=== PATIENT | female | born 1990 | race Caucasian/White ===

== ENCOUNTER → 2016-11-15 | Outpatient (CLI) | payer OTHER ==
[~2016-11-15] MED LIST: PRENTAB26 PO
== END | disposition home or self-care (01) ==
LOC: C.PAPS 09:31
PROVIDERS: ATTEND Obstetrics & Gynecology
DX: Z12.4 Encounter for screening for malignant neoplasm of cervix (principal)

== ENCOUNTER 2019-04-03 11:26 | Inpatient (IN) ==
[2019-04-03] MEDS ORDERED: LACTATED RINGER'S 1,000 ML IV PRN (12:14)
[2019-04-03] MEDS ORDERED: OXYTOCIN 30 UNITS/500 ML BAG IV PRN ×2 (12:14→13:58)
[2019-04-03 12:33] LABS: Hematocrit (blood only) 38.8 % (37-47); Hemoglobin 13.3 g/dL (12.0-16.0); Mean Corpuscular Volume 85.5 fL (80-100); Platelet Count 167 K/uL (130-400); RDW Coefficient of Variation 14.8 % (11.5-14.5); RDW Standard Deviation 45.6 fL (36.4-46.3); Red Blood Count 4.54 M/uL (4.2-5.4); White Blood Count 9.64 K/uL (4.8-10.8)
[2019-04-03 12:39] LABS: Mean Corpuscular Hgb Conc 34.3 g/dL (32-36)
--- NOTE | 2019-04-03 13:41 | Procedure Note ---
Vaginal Delivery Summary Date of Service April 03, 2019 Supervising Physician Co-Signing Physician Notes Lorrie pushed to deliver a viable male infant in OA position. There was no nuchal cord. The left / anterior shoulder delivered easily followed by the right one, and the remainder of the infant quickly followed. The vigorous was placed on the maternal abdomen where bulb suction and tactile stim were provided. The cord was doubly clamped and cut. Placenta delivered S/I/3VC. A first degree laceration was infiltrated with 1% plain lidocaine and then sutured with 2-0 vicryl. At this time the fundus is firm, lochia is minimal, and mom/infant are doing well.
[2019-04-03] MEDS ORDERED: BENZOCAINE 20% AER SPR 82.5 GM CAN EXT PRN (13:58)
[2019-04-03] MEDS ORDERED: ACETAMINOPHEN 325 MG TAB PO PRN (13:58)
[2019-04-03] MEDS ORDERED: SUPERCREAM 0.870% 15 GM JAR EXT PRN (13:58)
[2019-04-03] MEDS ORDERED: OXYCODONE/ACETAMINOPHEN 5mg/325mg TAB PO PRN (13:58)
[2019-04-03] MEDS ORDERED: DIPHTHERIA/TETANUS/PERTUSSIS 0.5 ML SYR/VIAL IM ONE (13:58)
[2019-04-03] MEDS ORDERED: HYDROCORTISONE ACETATE 25 MG SUPP PR PRN (13:58)
[2019-04-03] MEDS: DOCUSATE SODIUM 100 MG CAP PO SCH (20:21)
[2019-04-03] MEDS: IBUPROFEN 600 MG TAB PO PRN (22:42)
[2019-04-04] MEDS: IBUPROFEN 600 MG TAB PO PRN ×2 (04:55→20:07)
--- NOTE | 2019-04-04 07:42 | Obstetrical Progress Note ---
Date of Service <Giancarlo Reed MD - Last Filed: 04/04/19 07:42> April 04, 2019 Assessment & Plan <Giancarlo Reed MD - Last Filed: 04/04/19 07:42> (1) (spontaneous vaginal delivery): 28 year old day 1 s/p at 38 weeks and 6 days * Vital Signs Reviewed and WNL * Blood type A+ GBS-, Rubella immune * Pain well controlled * Hemoglobin pending this morning * Encouraged patient to continue to ambulate and work on breast feeding today * Went over all discharge instructions with patient Subjective <Giancarlo Reed MD - Last Filed: 04/04/19 07:42> Ambulation: ambulating normally Voiding: no voiding problems Passing Gas:: Yes Diet Tolerance:: regular diet Lochia:: Moderate Feeding Type:: breast feeding Current Pain Level(1-10): 1 Ms Silva is doing very well this morning, she has no particular concerns this morning and feels she is ready to return home later today. Constitutional: no fever and no chills Respiratory: no cough and no dyspnea Cardiovascular: no chest pain, no dyspnea and no calf pain Gastrointestinal: no nausea and no vomiting Physical Exam <Giancarlo Reed MD - Last Filed: 04/04/19 07:42> Vital Signs (Past 24 Hours) Last Vital Signs Temp 36.7 C 04/04/19 04:05 Pulse 61 04/04/19 04:05 Resp 18 04/04/19 04:05 BP 106/69 04/04/19 04:05 Constitutional well developed, well nourished, cooperative and comfortable Respiratory normal respiratory effort, lungs clear to auscultation Cardiovascular Rate/Rhythm: regular rate and regular rhythm Heart Sounds: no click, no gallop, no murmur and no cardiac rub Extremities: no calf tenderness Gastrointestinal (Abdomen) Percussion/Palpation: abdomen soft (Around uterus); abdomen nontender Genitourinary OB Exam Abdomen: + fundal height Fundus: + firm and + relation to umbilicus (At umbilicus); not tender <Jimbo Kirk MD - Last Filed: 04/08/19 13:10> Co-Signing Physician Notes Patient seen and evaluated and agree with the above findings and plan Resident Activity Tracking <Giancarlo Reed MD - Last Filed: 04/04/19 07:42> Resident Involvement: Resident Care Provided Care Provided: OB Delivery
[2019-04-04 08:18] LABS: Hematocrit (blood only) 33.6 % (37-47); Hemoglobin 11.4 g/dL (12.0-16.0); Mean Corpuscular Hgb Conc 33.9 g/dL (32-36); Mean Corpuscular Volume 85.5 fL (80-100); Mean Platelet Volume 13.7 fL (7.4-10.4); Platelet Count 148 K/uL (130-400); RDW Coefficient of Variation 14.9 % (11.5-14.5); RDW Standard Deviation 46.5 fL (36.4-46.3); Red Blood Count 3.93 M/uL (4.2-5.4); White Blood Count 9.07 K/uL (4.8-10.8)
[2019-04-04 08:19] LABS: Platelet Estimate Normal (Normal)
[2019-04-04] MEDS ORDERED: NON-FORMULARY MEDICATION (Prenatal Vit-Iron Fum-Folic Ac [Prenatal Vitamin] 1 TAB) PO SCH (09:00)
[2019-04-04] MEDS: PRENATAL VITAMIN 1 TAB PO SCH (09:36)
[2019-04-04] MEDS: DOCUSATE SODIUM 100 MG CAP PO SCH ×2 (09:37→20:08)
[2019-04-05] MEDS: IBUPROFEN 600 MG TAB PO PRN (05:16)
[2019-04-05 06:42] LABS: Hematocrit (blood only) 33.5 % (37-47); Hemoglobin 11.2 g/dL (12.0-16.0)
--- NOTE | 2019-04-05 07:33 | Obstetrical Progress Note ---
Date of Service April 05, 2019 Assessment & Plan (1) (spontaneous vaginal delivery): Subjective Ambulation: ambulating normally Voiding: no voiding problems Passing Gas:: Yes Diet Tolerance:: regular diet Lochia:: Small Feeding Type:: breast feeding Current Pain Level(1-10): 0 Respiratory: no cough and no dyspnea Cardiovascular: no chest pain Breast: no problem reported Gastrointestinal: no nausea and no vomiting Genitourinary (male): no difficulty urinating Lochia decreasing Psychiatric: no depression Physical Exam Vital Signs (Past 24 Hours) Last Vital Signs Temp 36.8 C 04/04/19 23:40 Pulse 70 04/04/19 23:40 Resp 16 04/04/19 23:40 BP 101/61 04/04/19 23:40 Pulse Ox 99 04/04/19 23:40 Constitutional WD/WN, vitals as above no acute distress Respiratory normal respiratory effort and able to speak in complete sentences; no respiratory distress and does not use accessory muscles Cardiovascular Rate/Rhythm: regular rate and regular rhythm Extremities: no calf tenderness Negative Glynn's Gastrointestinal (Abdomen) Post-gravid, fundus firm at umbilicus Psychiatric Affect: euthymic affect Genitourinary Speculum/Bimanual Exam: uterus nontender
[2019-04-05] MEDS: PRENATAL VITAMIN 1 TAB PO SCH (09:24)
[2019-04-05] MEDS: DOCUSATE SODIUM 100 MG CAP PO SCH (09:25)
== END 2019-04-05 10:50 | disposition home or self-care (01) | DRG 807 ==
LOC: OPB 11:26 → 4S1 11:29 → 4S2 17:23

== ENCOUNTER 2021-02-27 12:09 | Inpatient (IN) ==
[2021-02-27] MEDS ORDERED: LACTATED RINGER'S 1,000 ML IV PRN (12:45)
[2021-02-27] MEDS ORDERED: BUPIVACAINE 0.25% 30 ML VIAL ONE (12:49)
[2021-02-27] MEDS ORDERED: SODIUM CHLORIDE 0.9% INJ 10 ML VIAL ONE (12:49)
[2021-02-27] MEDS ORDERED: ePHEDrine sulfate 50 MG/ML AMP ONE (12:49)
[2021-02-27] MEDS ORDERED: fentaNYL 2MCG/ML ROPIVACAINE 1.25MG/ML 100 ML BAG EPI ONE (12:50)
[2021-02-27] MEDS ORDERED: fentaNYL citrate 100 MCG/2 ML VIAL ONE (12:50)
[2021-02-27] MEDS ORDERED: PATIENT'S HEIGHT AND/OR WEIGHT NEEDED SCH (13:00)
[2021-02-27 13:11] LABS: Hematocrit (blood only) 36.9 % (37-47); Hemoglobin 12.3 g/dL (12.0-16.0); Mean Corpuscular Hemoglobin 27.6 pg (25-34); Mean Corpuscular Hgb Conc 33.3 g/dL (32-36); Mean Corpuscular Volume 82.9 fL (80-100); Mean Platelet Volume 11.2 fL (7.4-10.4); Platelet Count 193 K/uL (130-400); RDW Coefficient of Variation 15.2 % (11.5-14.5); RDW Standard Deviation 46.3 fL (36.4-46.3); Red Blood Count 4.45 M/uL (4.2-5.4)
[2021-02-27] MEDS ORDERED: NALOXONE HCL 0.4 MG/1 ML VIAL/CARP IV PRN (13:28)
[2021-02-27] MEDS ORDERED: fentaNYL 2MCG/ML ROPIVACAINE 1.25MG/ML 100 ML BAG EPI PRN (13:28)
[2021-02-27] MEDS ORDERED: NALOXONE HCL 1 MG in SODIUM CHLORIDE 0.9% 1000ML 1,000 ML IV PRN (13:28)
[2021-02-27] MEDS ORDERED: diphenhydrAMINE 50 MG/ML VIAL IV PRN (13:28)
[2021-02-27] MEDS ORDERED: ONDANSETRON INJ 2 MG/ML 2 ML VIAL IV PRN (13:28)
[2021-02-27] MEDS ORDERED: ePHEDrine sulfate 50 MG/ML AMP IV PRN (13:28)
--- NOTE | 2021-02-27 13:28 | Anesthesiology Consultation ---
Date of Service February 27, 2021 Assessment & Plan ASA ASA2 Proposed Anesthesia Anesthesia Type: Labor Epidural Risk / Benefits Reviewed With: PT / POA / Parent / Guardian, Accepts Plan and Informed Consent Obtained History Height/Weight Height: 5 ft 7 in Weight: 85.003 kg Allergies Allergy/AdvReac Type Severity Reaction Status Date / Time No Known Allergies Allergy Verified 02/27/21 13:58 Medications Home Medications Medication Instructions Recorded Confirmed Last Taken Vitamin 1 tab PO DAILY 04/03/19 02/27/21 02/27/21 07:00 Active Medications Generic Name Dose Route Start Last Admin Trade Name Freq PRN Reason Stop Dose Admin Lactated Ringer's 1,000 mls @ 125 mls/hr 02/27/21 12:45 02/27/21 13:06 Lr IV 03/01/21 12:44 999 mls/hr .Q8H PRN Administration L&D Protocol Protocol Past Medical History Medical History Cervical cancer screening History of chicken pox Large for gestational age fetus affecting management of mother (spontaneous vaginal delivery) Wanting to go home yesterday but baby not able to be circumcised then. Planning circ this AM and D/C home today. Urinary leakage Exercise / Class Metabolic Activity II 4-5 Yardwork/Stairs/Walk up hill Past Family History Family History Grandmother (Paternal) Diabetes Grandfather (Paternal) Heart disease Denies family history of Ovarian cancer Breast cancer Colorectal cancer Past Surgical History Surgical History History of epidural anesthesia 09/14/16= LABOR EPIDURAL AT L3-L4 X 1 ATTEMPT= GOOD PAIN CONTROL History of surgery BLADDER STIMULATOR IMPLANT (2005) FOR CHRONIC URINARY LEAKAGE (UNSUCCESSFUL)- HAS NOT WORKED FOR "YEARS" History of tooth extraction Past Anesthesia History No Hx of Anesthesia Complications and No Family Hx of Anesthesia Complications History of PONV No Hx of PONV and No Hx of Motion Sickness Social History Smoking Status: Never smoker Hx Alcohol Use: No Hx Substance Use: No substance use type: does not use Review of Systems denies fever/cough/ colds/ chest pain/ SOB/ JENNIFER denies JENNIFER Physical Exam Vital Signs Last Vital Signs Temp 36.9 C 02/27/21 13:17 Pulse 89 02/27/21 13:57 Resp 18 02/27/21 13:17 BP 111/65 02/27/21 13:55 Pulse Ox 100 02/27/21 13:57 ENMT Mouth: no TMJ abnormality and no dentition abnormality Thyromental Distance: > or= 3.5 Finger Breadths Mallampati Class: II Neck neck extension not limited Respiratory normal respiratory effort; no respiratory distress Auscultation: lungs clear to auscultation bilaterally Cardiovascular Rate/Rhythm: regular rate and regular rhythm Neurologic moves all extremities Psychiatric Orientation: alert and oriented x 3 Testing Laboratory Results 02/27/21 12:58
--- NOTE | 2021-02-27 14:10 | History & Physical Report ---
Date of Service February 27, 2021 Assessment & Plan (1) Encounter for supervision of normal in multigravida: 30yo at 38.3 weeks GA. Active labor. 1. Fetus: Reactive NST 2. Labor: Active. Complete. 3. GBS negative 4. Vitals: WNL Admission and Anticipated Discharge Date Admission Date: February 27, 2021 History of Present Illness Primary Care Provider: Nesha Juan MD 30yo at 38.3 weeks GA. Presents in active labor. uncomplicated to date Blood Type A Positive 09/02/18 Antibody Screen NEGATIVE 09/02/18 Hemoglobin 11.2 g/dL (12.0-16.0) L 04/05/19 Hematocrit 33.5 % (37-47) L 04/05/19 Mean Corpuscular Volume 85.5 fL (80-100) 04/04/19 Platelet Count 148 K/uL (130-400) 04/04/19 Rubella IgG Antibody Immune (Immune) 09/02/18 Rapid Plasma Reagin Nonreactive (Nonreactive) 09/02/18 Hepatitis B Surface Antigen Neg (Neg) 09/02/18 HIV (1&2) Ab and P24 Ag, 4th Gener Neg (Neg) 09/02/18 Glucose 1 Hour 50 gm Load 100 mg/dl (70-130) 01/20/19 OB Optional Labs: Chlamydia trachomatis RNA NOT DETECTED (NOT DETECTED) 09/02/18 Neisseria gonorrhoeae RNA NOT DETECTED (NOT DETECTED) 09/02/18 Allergies Allergy/AdvReac Type Severity Reaction Status Date / Time No Known Allergies Allergy Verified 02/27/21 13:58 Home Medications Medication Instructions Recorded Confirmed Type Vitamin 1 tab PO DAILY 04/03/19 02/27/21 History Patient History Medical History Cervical cancer screening History of chicken pox Large for gestational age fetus affecting management of mother (spontaneous vaginal delivery) Wanting to go home yesterday but baby not able to be circumcised then. Planning circ this AM and D/C home today. Urinary leakage Surgical History History of epidural anesthesia 09/14/16= LABOR EPIDURAL AT L3-L4 X 1 ATTEMPT= GOOD PAIN CONTROL History of surgery BLADDER STIMULATOR IMPLANT (2005) FOR CHRONIC URINARY LEAKAGE (UNSUCCESSFUL)- HAS NOT WORKED FOR "YEARS" History of tooth extraction Family History Grandmother (Paternal) Diabetes Grandfather (Paternal) Heart disease Denies family history of Ovarian cancer Breast cancer Colorectal cancer Social History (Updated 08/12/20 @ 09:59 by Nesha Friedman) Smoking Status: Never smoker Hx Alcohol Use: No Hx Substance Use: No Preferred Language: Japanese Communication Ability: Effective 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 Results & Data ([facility]) Vital Signs (Past 12 Hours) Vital Signs Temp Pulse Resp BP Pulse Ox 02/27/21 13:57 89 100 02/27/21 13:55 86 111/65 02/27/21 13:52 76 111/63 99 02/27/21 13:51 65 122/70 02/27/21 13:47 69 98 02/27/21 13:46 70 117/73 02/27/21 13:42 67 100 02/27/21 13:37 87 99 02/27/21 13:17 36.9 C 18 02/27/21 12:25 89 111/67 Coding Level of Care Code None Diagnoses Encounter for supervision of normal in multigravida Z34.80
[2021-02-27] MEDS: OXYTOCIN 30 UNITS/500 ML BAG IV PRN ×2 (14:23→16:12)
--- NOTE | 2021-02-27 15:06 | Anesthesia Procedure Note ---
Date of Service February 27, 2021 Anesthesia Post Epidural Note Vital Signs Vital Signs: Temp Pulse Resp BP Pulse Ox 36.9 C 69 18 117/78 100 02/27/21 13:17 02/27/21 15:03 02/27/21 13:17 02/27/21 15:03 02/27/21 14:27 Notes Mental Status: alert / awake / arousable and participated in evaluation Patient Amnestic to Procedure: Yes Nausea / Vomiting: adequately controlled Pain: adequately controlled Airway Patency, RR, SpO2: stable & adequate BP & HR: stable & adequate Hydration State: stable & adequate Anesthetic Complications: no major complications apparent and Pt Satisfied with anesthetic care
[2021-02-27] MEDS ORDERED: OXYTOCIN 30 UNITS/500 ML BAG IV PRN (15:13)
[2021-02-27] MEDS ORDERED: SUPERCREAM 0.870% 15 GM JAR EXT PRN (15:13)
[2021-02-27] MEDS ORDERED: HYDROCORTISONE ACETATE 25 MG SUPP PR PRN (15:13)
[2021-02-27] MEDS ORDERED: BENZOCAINE 20% AER SPR 82.5 GM CAN EXT PRN (15:13)
[2021-02-27] MEDS ORDERED: ACETAMINOPHEN 325 MG TAB PO PRN (15:13)
[2021-02-27] MEDS ORDERED: bisacodyL 10 MG SUPP PR PRN (15:13)
[2021-02-27] MEDS ORDERED: DIPHTHERIA/TETANUS/PERTUSSIS 0.5 ML SYR/VIAL IM ONE (15:13)
--- NOTE | 2021-02-27 15:20 | Delivery Summary ---
DATE OF OPERATION: 02/27/2021 PROCEDURE: Spontaneous vaginal delivery with second-degree perineal laceration repair. SURGEON: Jimbo Kirk MD. PREOPERATIVE DIAGNOSES: 1. Single intrauterine at 38 weeks 3 days gestational age. 2. Active labor. POSTOPERATIVE DIAGNOSES: 1. Single intrauterine at 38 weeks 3 days gestational age. 2. Active labor. 3. Status post procedure. ESTIMATED BLOOD LOSS: 300 mL DRAINS: None. FLUIDS: Continuous lactated Ringer. URINE OUTPUT: Not measured. COMPLICATIONS: None. FINDINGS: Viable male infant with weight and Apgars pending. DESCRIPTION OF PROCEDURE: The patient progressed to 10 cm dilated, 100% effaced, +2 station, pushed over intact perineum with epidural anesthesia and delivered a viable male , weight and Apgars as noted above. Head of the delivered in LUCIAN position, rest to left transverse. No nuchal cord was noted. Body and shoulders quickly followed. was delivered to maternal abdomen and was noted to have tone, but not vigorous and no crying reflex. A short delayed cord clamping with stimulation was attempted; however, no spontaneous cry was noted and the cord was double clamped and cut. taken to the waiting nursery staff. A cord blood was then obtained. Attention was then turned to delivery of the placenta, which was delivered intact, 3-vessel cord, gentle cord traction. On inspection of the perineum, vagina, and cervix, there was noted to be second degree perineal laceration, which was repaired in traditional crown stitch. The mother and were stable in the immediate post-delivery period with her being vigorous soon after being taken to the nursery staff for evaluation. I attest to the content of the Intraoperative Record and any orders documented therein. Any exception s are noted below.
[2021-02-27] MEDS ORDERED: miSOPROStoL 200 MCG TAB ONE (18:04)
[2021-02-27] MEDS: IBUPROFEN 600 MG TAB PO PRN (19:32)
[2021-02-27] MEDS: DOCUSATE SODIUM 100 MG CAP PO SCH (21:24)
[2021-02-28] MEDS: IBUPROFEN 600 MG TAB PO PRN ×3 (01:52→11:25)
[2021-02-28] MEDS: DOCUSATE SODIUM 100 MG CAP PO SCH (07:27)
--- NOTE | 2021-02-28 07:32 | Obstetrical Progress Note ---
Date of Service <Beto Winters MD - Last Filed: 02/28/21 07:59> February 28, 2021 Assessment & Plan <Beto Winters MD - Last Filed: 02/28/21 07:59> (1) Encounter for supervision of normal in multigravida: A/P: Lorrie Silva is a 30 y/o female on PPD#2 following IOL at 38+3 weeks. * Patient feels well today; eating well, voiding well, ambulating well * Pain well-controlled with ibuprofen 600mg q4h prn * PNL: Rh neg, RI, GBS neg, COVID neg * Routine care: OOB, ambulation, diet progression as tolerated * After discharge, will have six-week follow-up with Dr. Kirk Subjective <Beto Winters MD - Last Filed: 02/28/21 07:59> Lorrie Silva is a 30 y/o female on PPD#1 following IOL at 38+3 weeks. This morning she reports feeling well overall. Reports mild, 3/10 crampy abdominal pain well-managed on analgesics. Tolerating PO intake without nausea or vomiting. Patient has been able to ambulate without lightheadedness or dizziness. Lochia continues, though with some improvement this morning. Voiding without difficulty. Currently . Review of Systems Denies fever, chills, CP, SOB, cough, breast pain, dysuria, leg pain, leg swelling, headache, and changes in vision. Physical Exam <Beto Winters MD - Last Filed: 02/28/21 07:59> General: alert, oriented, no acute distress Cardiac: regular rate and rhythm, no murmurs appreciated Respiratory: lungs clear to auscultation bilaterally a/p, no wheezes/rales/rhonchi, no increased work of breathing, symmetrical chest rise, no respiratory distress Abdomen: soft, minimally tender, nondistended, bowel sounds present Uterus: uterine fundus firm, palpable at umbilicus Lower extremities: no lower extremity edema or swelling, no calf tenderness, Glynn's negative bilaterally Results & Data ([facility]) <Beto Winters MD - Last Filed: 02/28/21 07:59> Vital Signs (Past 12 Hours) Vital Signs Temp Pulse Resp BP 02/28/21 04:35 36.9 C 62 18 106/69 02/27/21 23:25 36.9 C 62 18 102/64 <Jimbo Kirk MD - Last Filed: 02/28/21 08:18> Co-Signing Physician Notes Patient seen and evaluated and agree with the above findings and plan. Doing well. Stable for discharge. Resident Activity Tracking <Beto Winters MD - Last Filed: 02/28/21 07:59> Resident Involvement: Resident Care Provided Care Provided: OB Delivery
[2021-02-28] MEDS ORDERED: PRENATAL VITAMIN 1 TAB PO SCH (08:00)
[2021-02-28] MEDS ORDERED: FERROUS SULFATE 325 MG TAB PO SCH (08:00)
[2021-02-28] MEDS ORDERED: bisacodyL 5 MG TABEC PO SCH (20:00)
== END 2021-02-28 17:20 | disposition home or self-care (01) | DRG 807 ==
LOC: OPB 12:09 → 4S1 12:09 → 4S2 17:50